=== PATIENT | female | born 1940 | race Caucasian/White ===

== ENCOUNTER → 2021-03-09 | Day surgery (SDC) | payer MEDICARE, OTHER ==
[~2021-03-09] MED LIST: AMLODIPINE BESY10 MG PO; ASPIRIN325 MG PO; BENAZEPRIL HCL10 MG PO; BYSTOLIC5 MG PO; CALTRATE 600 +1 EAC1 PO; CENTRUM SILVER1 EAC5 PO; CRESTOR10 MG PO; FUROSEMIDE40 MG PO; LEVOTHYROXINE50 MCG PO; MEGA RED PO; MIDAZOLAM HCL 2 MG/2 ML VIAL ONE; OR PHACO EYE KIT ONE; POTASSIUM CHLO20 ME2 PO; PREOP PHACO EYE KIT ONE; TRICOR145 MG PO
[2021-03-09 12:50] VITALS: BP 108/58
== END | disposition home or self-care (01) ==
LOC: OR 10:25
PROVIDERS: ATTEND Ophthalmology
DX: H25.11 Age-related nuclear cataract, right eye (principal); E03.9 Hypothyroidism, unspecified; J44.9 Chronic obstructive pulmonary disease, unspecified; I10 Essential (primary) hypertension; E78.5 Hyperlipidemia, unspecified; Z01.812 Encounter for preprocedural laboratory examination; Z20.822 Contact with and (suspected) exposure to COVID-19; Z79.82 Long term (current) use of aspirin; Z79.899 Other long term (current) drug therapy
CPT/HCPCS: 66984; J2250; U0002; V2632

== ENCOUNTER → 2021-03-23 | Day surgery (SDC) | payer MEDICARE, OTHER ==
[~2021-03-23] MED LIST changes: -MIDAZOLAM HCL 2 MG/2 ML VIAL ONE
[2021-03-23 13:30] VITALS: BP 105/71
== END | disposition home or self-care (01) ==
LOC: OR 10:32
PROVIDERS: ATTEND Ophthalmology
DX: H25.12 Age-related nuclear cataract, left eye (principal); J44.9 Chronic obstructive pulmonary disease, unspecified; E03.9 Hypothyroidism, unspecified; I10 Essential (primary) hypertension; E78.5 Hyperlipidemia, unspecified; Z01.812 Encounter for preprocedural laboratory examination; Z20.822 Contact with and (suspected) exposure to COVID-19; Z79.82 Long term (current) use of aspirin; Z79.899 Other long term (current) drug therapy
CPT/HCPCS: 66984; U0002; V2632